=== PATIENT | female | born 1970 | race American Indian/Alaskan Native ===

== ENCOUNTER 2016-08-22 09:33 | Outpatient (CLI) | payer MEDICAID, OTHER ==
[2016-08-22] MEDS ORDERED: PROVENTIL IH ONE (09:49)
== END 2016-08-22 09:34 | disposition home or self-care (01) ==
LOC: PF 09:33
PROVIDERS: ATTEND Internal Medicine
DX: J44.9 Chronic obstructive pulmonary disease, unspecified (principal); G47.30 Sleep apnea, unspecified; F32.9 Major depressive disorder, single episode, unspecified; I89.0 Lymphedema, not elsewhere classified; M54.40 Lumbago with sciatica, unspecified side; M79.604 Pain in right leg; M79.605 Pain in left leg; M25.551 Pain in right hip; M25.552 Pain in left hip; M25.519 Pain in unspecified shoulder; M79.643 Pain in unspecified hand
CPT/HCPCS: 94060; 94640

== ENCOUNTER 2018-12-05 01:43 | Emergency (ER) | payer SELFPAY ==
[2018-12-05] MEDS ORDERED: TORADOL IM ONE (03:44)
[2018-12-05] MEDS ORDERED: DECADRON IM ONE (03:45)
--- NOTE | 2018-12-05 04:12 | Emergency Department Report ---
ED Lower Extremity HPI - General Chief Complaint: Extremity Problem,Nontraumatic Stated Complaint: RT SIDE LEG AND HIP PAIN Time Seen by Provider: 12/05/18 03:43 Source: EMS Mode of arrival: Wheelchair Limitations: No Limitations - History of Present Illness Initial Comments: Patient is a 48-year-old -[place] female with history of chronic low b ack pain who presents for low back pain radiating down the right thigh x 1 week, Patient denies fall injury or trauma. This is usual location duration and intensity of lower back pain of the past. Patient states she is taking gabapentin, Flexeril, and NSAIDs when necessary back pain as written by her PCP. Pt is pending pain management consult. Patient denies dysuria, frequency, or urgency. There is no hematuria, there is no numbness, no tingling, no paralysis, no loss ,or decrease in bowel or bladder function. Patient remains ambulatory to baseline per patient. There is no fever or chills, no n/v , no weakness MD Complaint: other (acute on chronic low back pain ) Onset/Timin -: week(s) Type of Injury: hyperextension Place: work Severity: moderate Severity scale (0 -10): 4 Improves With: nothing Worsens With: weight bearing, movement, palpation, other (bending twisting) Associated Symptoms: ambulatory. denies: snap/pop sensation, swelling, numbness, tingling - Related Data Home Medications Medication Instructions Recorded Confirmed Last Taken Furosemide [Lasix] 40 mg PO DAILY 08/03/14 08/03/14 Unknown Previous Rx's Medication Instructions Recorded Last Taken Type Amoxicillin/K Clav Tab [Augmentin 1 each PO Q12HR #14 tablet 08/06/14 Unknown Rx 500 mg] Clindamycin [Clindamycin CAP] 300 mg PO Q6HR #80 capsule 10/11/14 Unknown Rx Gabapentin [Neurontin] 600 mg PO Q8H #90 tablet 10/11/14 Unknown Rx HYDROcodone/APAP 5-325 [[place] 1 each PO Q6HR PRN #20 tablet 10/11/14 Unknown Rx 5/325] Ipratropium (Nf) [Atrovent HFA 2 puff IH Q6HR PRN #1 inha 10/11/14 Unknown Rx 17MCG/PUFF] Diclofenac Dr (Nf) 50 mg PO TID PRN #30 tab 12/05/18 Unknown Rx Menthol/Camphor [[place] 1 applicatio TP QID PRN #1 tube 12/05/18 Unknown Rx Ointment] predniSONE [Deltasone] 40 mg PO QDAY 5 Days #10 tab 12/05/18 Unknown Rx Allergies Allergy/AdvReac Type Severity Reaction Status Date / Time amoxicillin trihydrate AdvReac Itching Verified 05/29/15 15:43 [From Augmentin] naproxen AdvReac Hives Verified 05/29/15 15:43 potassium clavulanate AdvReac Itching Verified 05/29/15 15:43 [From Augmentin] ED Review of Systems ROS: Stated complaint: RT SIDE LEG AND HIP PAIN Other details as noted in HPI Constitutional: denies: chills, fever Eyes: denies: eye pain, eye discharge, vision change ENT: denies: ear pain, throat pain Respiratory: denies: cough, shortness of breath, wheezing Cardiovascular: denies: chest pain, palpitations Endocrine: no symptoms reported Gastrointestinal: denies: abdominal pain, nausea, vomiting, diarrhea Genitourinary: denies: urgency, dysuria, frequency, hematuria, discharge Musculoskeletal: back pain, arthralgia, myalgia. denies: joint swelling Skin: denies: rash, lesions Neurological: denies: headache, weakness, paresthesias Psychiatric: denies: anxiety, depression Hematological/Lymphatic: denies: easy bleeding, easy bruising ED Past Medical Hx - Past Medical History Hx Hypertension: Yes Hx CVA: No Hx Congestive Heart Failure: No Hx Diabetes: No Hx Arthritis: Yes (self reported) Hx Seizures: No Hx Asthma: No Hx COPD: Yes Additional medical history: LYMPHEDEMA CELLULITIS NEUROPATHY - Surgical History Past Surgical History?: Yes Hx Breast Surgery: Yes (LUMP LEFT BREAST REMOVED) - Social History Smoking Status: Never Smoker Substance Use Type: None - Medications Home Medications: Home Medications Medication Instructions Recorded Confirmed Last Taken Type Furosemide [Lasix] 40 mg PO DAILY 08/03/14 08/03/14 Unknown History Amoxicillin/K Clav Tab [Augmentin 1 each PO Q12HR #14 tablet 08/06/14 Unknown Rx 500 mg] Clindamycin [Clindamycin CAP] 300 mg PO Q6HR #80 capsule 10/11/14 Unknown Rx Gabapentin [Neurontin] 600 mg PO Q8H #90 tablet 10/11/14 Unknown Rx HYDROcodone/APAP 5-325 [[place] 1 each PO Q6HR PRN #20 tablet 10/11/14 Unknown Rx 5/325] Ipratropium (Nf) [Atrovent HFA 2 puff IH Q6HR PRN #1 inha 10/11/14 Unknown Rx 17MCG/PUFF] Diclofenac Dr (Nf) 50 mg PO TID PRN #30 tab 12/05/18 Unknown Rx Menthol/Camphor [[place] 1 applicatio TP QID PRN #1 tube 12/05/18 Unknown Rx Ointment] predniSONE [Deltasone] 40 mg PO QDAY 5 Days #10 tab 12/05/18 Unknown Rx ED Physical Exam - General Limitations: No Limitations General appearance: alert, in no apparent distress - Head Head exam: Present: atraumatic, normocephalic - Eye Eye exam: Present: normal appearance, PERRL, EOMI Pupils: Present: normal accommodation - ENT ENT exam: Present: mucous membranes moist - Neck Neck exam: Present: normal inspection, full ROM. Absent: tenderness (no posterior vertebral point tenderness no deformity no crepitus . ), meningismus, lymphadenopathy, thyromegaly - Respiratory Respiratory exam: Present: normal lung sounds bilaterally. Absent: respiratory distress, wheezes, stridor, chest wall tenderness - Cardiovascular Cardiovascular Exam: Present: regular rate, normal rhythm, normal heart sounds. Absent: systolic murmur, diastolic murmur, rubs, gallop - GI/Abdominal GI/Abdominal exam: Present: soft, normal bowel sounds. Absent: distended, guarding, rebound, rigid, bruit, hernia - Rectal Rectal exam: Present: deferred - Extremities Exam Extremities exam: Present: normal inspection, full ROM, normal capillary refill. Absent: tenderness, pedal edema, joint swelling, calf tenderness - Expanded Lower Extremity Exam Right Hip exam: Present: full ROM. Absent: tenderness, swelling, abrasion, laceration, ecchymosis Upper Leg exam: Present: normal inspection, full ROM Knee exam: Present: normal inspection, full ROM, tenderness Lower Leg exam: Present: normal inspection, full ROM. Absent: tenderness, swelling, abrasion, laceration, deformity, crepidus, erythema, palpable cord, Gregoria's sign Ankle exam: Present: normal inspection Foot/Toe exam: Present: normal inspection, full ROM Neuro vascular tendon exam: Absent: pulse deficit, motor deficit, sensory deficit, tendon deficit Gait: Positive: observed and normal - Back Exam Back exam: Present: normal inspection, full ROM, tenderness (no crepitus no swelling no stepoff ), muscle spasm. Absent: CVA tenderness (R), CVA tenderness (L), paraspinal tenderness, vertebral tenderness, rash noted - Expanded Back Exam Expanded Back exam: Absent: saddle anesthesia Back exam: Positive Straight Leg Raise: Right, Negative Straight Leg Raising: Left - Neurological Exam Neurological exam: Present: alert, oriented X3, CN II-XII intact, normal gait, reflexes normal. Absent: motor sensory deficit - Expanded Neurological Exam Expanded Patient oriented to: Present: person, place, time Speech: Present: fluid speech Cranial nerves: EOM's Intact: Normal, Gag Reflex: Normal, Tongue Deviation: Normal, Nystagmus: Normal, Facial Sensation: Normal Upper motor neuron: Gordy Neglect: Normal, Pronator Drift: Normal Motor strength exam: RUE: 5, LUE: 5, RLE: 5, LLE: 5 DTR: ankle (R): 2+, ankle (L): 2+ Best Eye Response ([place]): (4) open spontaneously Best Motor Response ([place]): (6) obeys commands Best Verbal Response ([place]): (5) oriented [place] Total: 15 - Psychiatric Psychiatric exam: Present: normal affect, normal mood - Skin Skin exam: Present: warm, dry, intact, normal color. Absent: rash ED Lower Extremity MDM - Medical Decision Making All pain is Chronic , there is no new pain source, or injury. pain is improved to 2/10 at this time. , plan: Diclofenac, prednisone, continue flexeril, continue Gabapentin, Follow up with Ortho as scheduled, follow up with pain management as scheduled , vital signs at this time: BP: 138/74, R: 16, P: 84, T: 98.4 Critical care attestation.: If time is entered above; I have spent that time in minutes in the direct care of this critically ill patient, excluding procedure time. ED Disposition Clinical Impression: Chronic low back pain with right-sided sciatica Qualifiers: Back pain laterality: right Qualified Code(s): M54.41 - Lumbago with sciatica, right side Low back strain Qualifiers: Encounter type: initial encounter Qualified Code(s): S39.012A - Strain of muscle, fascia and tendon of lower back, initial encounter Disposition: TO HOME OR SELFCARE Is pt being admited?: No Does the pt Need Aspirin: No Condition: Stable Instructions: Lumbar Radiculopathy (ED), Arthralgia (ED) Prescriptions: predniSONE [Deltasone] 40 mg PO QDAY 5 Days #[address] (Nf) 50 mg PO TID PRN #30 tab PRN Reason: pain Menthol/Camphor [[place] Ointment] 1 applicatio TP QID PRN #1 tube PRN Reason: pain Referrals: JOSE J JEAN BAPTISTE MD [Referring] - 3-5 Days Forms: Work/School Release Form(ED) Time of Disposition: 04:37
[2018-12-05 07:21] VITALS: BP 151/79
== END 2018-12-05 05:35 | disposition home or self-care (01) ==
LOC: ED 01:43
DX: S39.012A Strain of muscle, fascia and tendon of lower back, initial encounter (principal); M54.41 Lumbago with sciatica, right side; M19.90 Unspecified osteoarthritis, unspecified site; J44.9 Chronic obstructive pulmonary disease, unspecified; Z88.1 Allergy status to other antibiotic agents; Z88.8 Allergy status to other drugs, medicaments and biological substances; X58.XXXA Exposure to other specified factors, initial encounter; Y93.89 Activity, other specified; Y92.89 Other specified places as the place of occurrence of the external cause; Y99.8 Other external cause status
CPT/HCPCS: 96372; 99283; J1100; J1885

== ENCOUNTER 2019-04-30 23:35 | Observation (INO) | payer OTHER ==
[2019-05-01 01:00] LABS: Hematocrit 29.3 % (30.3-42.9); Hemoglobin 8.9 gm/dl (10.1-14.3); Mean Corpuscular HGB Conc 31 % (30-34); Platelet Count 264 K/mm3 (140-440); Red Blood Count 4.86 M/mm3 (3.65-5.03)
[2019-05-01 01:15] LABS: Albumin 4.1 g/dL (3.9-5); BUN/Creatinine Ratio 10; Blood Urea Nitrogen 7 mg/dL (7-17); Calcium 9.4 mg/dL (8.4-10.2); Hemolysis Index 0
[2019-05-01 01:17] LABS: Mean Corpuscular Volume 60 fl (79-97); Red Cell Distribution Width 20.3 % (13.2-15.2)
[2019-05-01 01:29] LABS: Alanine Aminotransferase < 5 units/L (7-56)
[2019-05-01 04:32] LABS: Basophils % (Manual) 0 % (0.0-1.8); Total Cells Counted 100
[2019-05-01 04:34] LABS: Burr Cells Rare; Hypochromasia 1+; Schistocytes Rare; Target Cells 1+
[2019-05-01 04:35] LABS: Ovalocytes Few
[2019-05-01 04:36] LABS: Platelet Estimate Consistent w Auto
[2019-05-01] MEDS ORDERED: traMADol 50 MG TAB PO ONE (06:12)
[2019-05-01] MEDS ORDERED: traMADol 50 MG TAB ONE (06:13)
[2019-05-01] MEDS ORDERED: ONDANSETRON 4 MG/2 ML INJ IV ONE (07:18)
[2019-05-01] MEDS ORDERED: MORPHINE 4 MG/1 ML INJ IV ONE (07:18)
[2019-05-01] MEDS ORDERED: SODIUM CHLORIDE 0.9% 1000 ML 1,000 ML IV ONE (07:18)
[2019-05-01 07:32] LABS: Bilirubin,Urine NEG (Negative); Blood,Urine NEG (Negative); Color,Urine Yellow (Yellow); Mucus,Urine FEW /HPF; Protein,Urine <15 mg/dL mg/dL (Negative); Urobilinogen,Urine < 2.0 mg/dL (<2.0); WBC,Urine < 1.0 /HPF (0.0-6.0)
[2019-05-01 07:59] LABS: HCG Qualitative,Urine Negative (Negative)
--- NOTE | 2019-05-01 08:09 | Emergency Department Report ---
ED Abdominal Pain HPI - General Chief Complaint: Abdominal Pain Stated Complaint: ABD PAIN Time Seen by Provider: 05/01/19 07:02 Source: patient Mode of arrival: Ambulatory Limitations: No Limitations - History of Present Illness Initial Comments: This is a 48-year-old female nontoxic, well nourished in appearance, no acute signs of distress presents to the ED with c/o of nausea and vomiting and abdominal pain 1 day. Patient describes vomiting as food content and yellow gastric acid. Patient describes abdominal pain as cramping and aching with l evel of 8/10 in the upper abdominal area. Patient denies chest pain, short of breath, fever, hemoptysis, blood in stool, chills, headache, stiff neck, numbness or tingling. Patient denies any diarrhea or constipation. Denies any blood in stool. Patient denies any recent travels. Patient stated allergies to penicillin and naproxen. MD Complaint: abdominal pain -: days(s) Location: diffuse Radiation: none Migration to: no migration Severity: mild Severity scale (0 -10): 8 Quality: cramping, aching Consistency: constant Improves With: nothing Worsens With: nothing Associated Symptoms: nausea, vomiting. denies: diarrhea, fever, chills, constipation, dysuria, hematemesis, hematochezia, melena, hematuria, anorexia, syncope - Related Data Home Medications Medication Instructions Recorded Confirmed Last Taken Furosemide [Lasix] 40 mg PO DAILY 08/03/14 08/03/14 Unknown Previous Rx's Medication Instructions Recorded Last Taken Type Amoxicillin/K Clav Tab [Augmentin 1 each PO Q12HR #14 tablet 08/06/14 Unknown Rx 500 mg] Clindamycin [Clindamycin CAP] 300 mg PO Q6HR #80 capsule 10/11/14 Unknown Rx Gabapentin [Neurontin] 600 mg PO Q8H #90 tablet 10/11/14 Unknown Rx HYDROcodone/APAP 5-325 [[place] 1 each PO Q6HR PRN #20 tablet 10/11/14 Unknown Rx 5/325] Ipratropium (Nf) [Atrovent HFA 2 puff IH Q6HR PRN #1 inha 10/11/14 Unknown Rx 17MCG/PUFF] Diclofenac Dr (Nf) 50 mg PO TID PRN #30 tab 12/05/18 Unknown Rx Menthol/Camphor [[place] 1 applicatio TP QID PRN #1 tube 12/05/18 Unknown Rx Ointment] predniSONE [Deltasone] 40 mg PO QDAY 5 Days #10 tab 12/05/18 Unknown Rx Allergies Allergy/AdvReac Type Severity Reaction Status Date / Time amoxicillin trihydrate AdvReac Itching Verified 05/29/15 15:43 [From Augmentin] naproxen AdvReac Hives Verified 05/29/15 15:43 potassium clavulanate AdvReac Itching Verified 05/29/15 15:43 [From Augmentin] ED Review of Systems ROS: Stated complaint: ABD PAIN Other details as noted in HPI Constitutional: denies: chills, fever Eyes: denies: eye pain, eye discharge, vision change ENT: denies: ear pain, throat pain Respiratory: denies: cough, shortness of breath, wheezing Cardiovascular: denies: chest pain, palpitations Endocrine: no symptoms reported Gastrointestinal: abdominal pain, nausea, vomiting. denies: diarrhea, constipation Genitourinary: denies: urgency, dysuria, discharge Musculoskeletal: denies: back pain, joint swelling, arthralgia Skin: denies: rash, lesions Neurological: denies: headache, weakness, paresthesias Psychiatric: denies: anxiety, depression Hematological/Lymphatic: denies: easy bleeding, easy bruising ED Past Medical Hx - Past Medical History Hx Hypertension: Yes Hx CVA: No Hx Congestive Heart Failure: No Hx Diabetes: No Hx Arthritis: Yes (self reported) Hx Seizures: No Hx Asthma: No Hx COPD: Yes Additional medical history: LYMPHEDEMA CELLULITIS NEUROPATHY - Surgical History Hx Breast Surgery: Yes (LUMP LEFT BREAST REMOVED) - Social History Smoking Status: Never Smoker Substance Use Type: None - Medications Home Medications: Home Medications Medication Instructions Recorded Confirmed Last Taken Type Furosemide [Lasix] 40 mg PO DAILY 08/03/14 08/03/14 Unknown History Amoxicillin/K Clav Tab [Augmentin 1 each PO Q12HR #14 tablet 08/06/14 Unknown Rx 500 mg] Clindamycin [Clindamycin CAP] 300 mg PO Q6HR #80 capsule 10/11/14 Unknown Rx Gabapentin [Neurontin] 600 mg PO Q8H #90 tablet 10/11/14 Unknown Rx HYDROcodone/APAP 5-325 [[place] 1 each PO Q6HR PRN #20 tablet 10/11/14 Unknown Rx 5/325] Ipratropium (Nf) [Atrovent HFA 2 puff IH Q6HR PRN #1 inha 10/11/14 Unknown Rx 17MCG/PUFF] Diclofenac Dr (Nf) 50 mg PO TID PRN #30 tab 12/05/18 Unknown Rx Menthol/Camphor [[place] 1 applicatio TP QID PRN #1 tube 12/05/18 Unknown Rx Ointment] predniSONE [Deltasone] 40 mg PO QDAY 5 Days #10 tab 12/05/18 Unknown Rx ED Physical Exam - General Limitations: No Limitations General appearance: alert, in no apparent distress - Head Head exam: Present: atraumatic, normocephalic - Eye Eye exam: Present: normal appearance - ENT ENT exam: Present: normal exam, normal orophraynx - Neck Neck exam: Present: normal inspection, full ROM. Absent: tenderness, meningismus, lymphadenopathy - Respiratory Respiratory exam: Present: normal lung sounds bilaterally. Absent: respiratory distress, wheezes, rales, rhonchi, stridor, chest wall tenderness, accessory muscle use, decreased breath sounds, prolonged expiratory - Cardiovascular Cardiovascular Exam: Present: regular rate, normal rhythm, normal heart sounds. Absent: bradycardia, tachycardia, irregular rhythm, systolic murmur, diastolic murmur, rubs, gallop - GI/Abdominal GI/Abdominal exam: Present: soft, tenderness (bilateral upper abdominal area), normal bowel sounds. Absent: distended, guarding, rebound, rigid, diminished bowel sounds - Rectal Rectal exam: Present: normal inspection, normal rectal tone, other (Mechanical Maintenance Supervisor Mirna present during exam). Absent: decreased rectal tone, heme (+) stool, black stool, bloody stool, fecal impaction, hemorrhoids, mass, tenderness - Extremities Exam Extremities exam: Present: normal inspection, full ROM - Back Exam Back exam: Present: normal inspection, full ROM. Absent: tenderness, CVA tenderness (R), CVA tenderness (L), muscle spasm, paraspinal tenderness, vertebral tenderness, rash noted - Neurological Exam Neurological exam: Present: alert, oriented X3, normal gait - Psychiatric Psychiatric exam: Present: normal affect, normal mood - Skin Skin exam: Present: warm, dry, intact, normal color. Absent: rash ED Course Vital Signs 04/30/19 05/01/19 23:59 09:30 Temperature 99.5 F 98.2 F Pulse Rate 82 76 Respiratory 20 18 Rate Blood Pressure 140/76 Blood Pressure 107/50 [Right] O2 Sat by Pulse 100 Oximetry - Reevaluation(s) Reevaluation #1: 05/01/19 08:09 Patient is speaking in full sentences with no signs of distress noted. - Consultations Consultation #1: 05/01/19 10:27 Patient has been consulted with Elizabeth Blackmon about patient history, physical exam, and labs/CT results and examined patient and agrees to ED plan of care with admission and consult with surgery and GI doctor. ED Medical Decision Making - Lab Data Result diagrams: 05/01/19 00:10 05/01/19 00:10 - Medical Decision Making This is a 48-year-old female that presents with abdominal pain, nausea vomiting, colitis, anemia. Patient is stable and was examined by me and Dr. Khalil. Labs obtained. UA obtained. CT of abdomen obtained and dictated by the radiologist. Patient is notified of the report with no questions noted by the patient. Patient was consulted with GI, surgery and admitted with hospitalist. Patient received resuscitation in the ER. Patient placed on n.p.o. At time of admission, the patient does not seem toxic or ill in appearance. No acute signs of distress noted. Patient agrees to admission treatment plan of care. No further questions noted by the patient. Critical care attestation.: If time is entered above; I have spent that time in minutes in the direct care of this critically ill patient, excluding procedure time. ED Disposition Clinical Impression: Colitis Abdominal pain Qualifiers: Abdominal location: generalized Qualified Code(s): R10.84 - Generalized abdominal pain Nausea & vomiting Qualifiers: Vomiting type: unspecified Vomiting Intractability: non-intractable Qualified Code(s): R11.2 - Nausea with vomiting, unspecified Anemia Qualifiers: Anemia type: unspecified type Qualified Code(s): D64.9 - Anemia, unspecified Disposition: DC-09 OP ADMIT IP TO THIS HOSP Is pt being admited?: Yes Condition: Stable Referrals: PRIMARY CARE,MD [Primary Care Provider] - 3-5 Days
--- NOTE | 2019-05-01 09:43 | Cat Scan Report ---
CT ABDOMEN AND PELVIS WITH CONTRAST HISTORY: Abdominal pain. COMPARISON: None TECHNIQUE: Routine abdominal and pelvic CT exam performed following intravenous contrast administrat ion. 100 cc of Omnipaque 300 was injected intravenously without incident. Consent was obtained prior to the administration of contrast. All CT scans at this location are performed using CT dose reduction for ALARA by means of automated e xposure control. FINDINGS: CT ABDOMEN: Lung Bases: Clear. Liver: Normal liver size, contour and density. No liver mass. Biliary: Cholelithiasis with at least 2 calculi in the largest measuring 5 mm. The gallbladder is nor vicente distended with a normal wall thickness and no pericholecystic fluid. Bile ducts are normal. Spleen: No significant abnormality. Unenlarged. Pancreas: No significant abnormality. Adrenals: No significant abnormality. Kidneys: No significant abnormality. The renal collecting systems and ureters are nondilated. Lymphatics: No lymphadenopathy. Vasculature: No significant abnormality. Bowel/Peritoneum: The cecum and appendix are distended with fluid but the rest of the colon is normal . The appendix measures 12 mm in diameter. No periappendiceal inflammatory changes and no periappendi ceal abscess. The terminal ileum and the rest of the small bowel are normal. No free air. No free flu id. CT PELVIC: : Normal uterus and ovaries. A 2 cm dominant follicle of the right ovary. No adnexal mass or free f luid. Lymphatics: No lymphadenopathy. Osseous Structures: No suspicious bone lesion. Additional Findings: None IMPRESSION: 1. A fluid-filled appendix and cecum are of uncertain significance given that there are no periappend iceal or pericecal inflammatory changes. Consider acute appendicitis as a possibility if there are cl inical signs or laboratory values which suggest appendicitis. 2. No other significant finding. Signer Name: Igor Mcgrath MD Signed: 05/01/2019 9:39 AM Workstation Name: [id number]
[2019-05-01] MEDS ORDERED: PIPERACIL/TAZOBACTA 4.5/NS 100 4.5 GM/100 ML VIAL IV ONE (10:02)
[2019-05-01] MEDS ORDERED: metroNIDAZOLE/NS 500 MG/100 ML 500 MG/100 ML BAG IV ONE (10:16)
[2019-05-01] MEDS ORDERED: ALBUTEROL 2.5 MG/3 ML NEBU IH PRN (12:50)
[2019-05-01] MEDS ORDERED: ACETAMINOPHEN 325 MG TAB PO PRN (12:50)
[2019-05-01] MEDS ORDERED: ONDANSETRON 4 MG/2 ML INJ IV PRN (12:50)
--- NOTE | 2019-05-01 13:04 | History and Physical Report ---
History of Present Illness Chief complaint: I have abdominal pain History of present illness: 48 YO Female with HTN, OA, Lymphedema, COPD, Obesity Hypoventilation Syndrome, Neuropathy presents to ED for evaluation. Patient states that she has experienced abdominal pain over the past 1 day with persistent symptoms during the same timeframe. Patient acknowledges onset of symptoms around 1900 hrs. on the day prior to admission. Patient states symptoms began after eating a hot dog. Patient knowledges nausea, multiple episodes of vomiting, abdominal pain, abdominal cramping. Patient reports that pain in her abdomen is 8/10, constant, without exacerbating or alleviating factors. EMS notified and upon arrival the patient was found to be in distress and subsequently transported to [facility] for further evaluation and care. Patient seen in ED and evaluated in the emergency department. Lab and imaging studies reviewed. CT scan of the abdomen and pelvis was conducted. Patient found to have clinical symptoms consistent with gastroenteritis. Patient placed in observation status and admitted to medical floor. Patient denies fever, chills, chest pain, short of breath, palpitations, hemoptysis, blood in stool, chills, headache, productive cough, stiff neck, numbness or tingling. Surgery consult placed in the emergency department. GI consult placed in the emergency department. No prior admission for review. All medication listed at time of admission has been reconciled. Past History Past Medical History: arthritis, COPD, hypertension, other (see HPI) Past Surgical History: Other (Left Breast/Lumpectomy) Social history: single Family history: hypertension Medications and Allergies Allergies Allergy/AdvReac Type Severity Reaction Status Date / Time amoxicillin trihydrate AdvReac Itching Verified 05/29/15 15:43 [From Augmentin] naproxen AdvReac Hives Verified 05/29/15 15:43 potassium clavulanate AdvReac Itching Verified 05/29/15 15:43 [From Augmentin] Home Medications Medication Instructions Recorded Confirmed Last Taken Type Furosemide [Lasix] 40 mg PO DAILY 08/03/14 08/03/14 Unknown History Amoxicillin/K Clav Tab [Augmentin 1 each PO Q12HR #14 tablet 08/06/14 Unknown Rx 500 mg] Clindamycin [Clindamycin CAP] 300 mg PO Q6HR #80 capsule 10/11/14 Unknown Rx Gabapentin [Neurontin] 600 mg PO Q8H #90 tablet 10/11/14 Unknown Rx HYDROcodone/APAP 5-325 [[place] 1 each PO Q6HR PRN #20 tablet 10/11/14 Unknown Rx 5/325] Ipratropium (Nf) [Atrovent HFA 2 puff IH Q6HR PRN #1 inha 10/11/14 Unknown Rx 17MCG/PUFF] Diclofenac Dr (Nf) 50 mg PO TID PRN #30 tab 12/05/18 Unknown Rx Menthol/Camphor [[place] 1 applicatio TP QID PRN #1 tube 12/05/18 Unknown Rx Ointment] predniSONE [Deltasone] 40 mg PO QDAY 5 Days #10 tab 12/05/18 Unknown Rx Active Meds: Active Medications Acetaminophen (Tylenol) 650 mg PO Q4H PRN PRN Reason: Pain MILD(1-3)/Fever >100.5/GOMEZ Albuterol (Proventil) 2.5 mg IH Q4HRT PRN PRN Reason: Shortness Of Breath Ondansetron HCl (Zofran) 4 mg IV Q8H PRN PRN Reason: Nausea And Vomiting Sodium Chloride (Sodium Chloride Flush Syringe 10 Ml) 10 ml IV BID NADIA Sodium Chloride (Sodium Chloride Flush Syringe 10 Ml) 10 ml IV PRN PRN PRN Reason: LINE FLUSH Review of Systems Constitutional: no weight loss, no weight gain, no fever, no chills Ears, nose, mouth and throat: no ear pain, no ear discharge, no tinnitis, no decreased hearing, no nose pain Breasts: no change in shape, no swelling, no mass Cardiovascular: no chest pain, no orthopnea, no palpitations, no rapid/irregular heart beat, no edema Respiratory: no cough, no cough with sputum, no excessive sputum Gastrointestinal: abdominal pain, nausea, vomiting, no diarrhea, no change in bowel habits, no hematemesis, no BRBPR, no melena Genitourinary Female: no pelvic pain, no flank pain, no menorrhagia, no urinary frequency, no urgency Rectal: no pain, no incontinence, no bleeding Musculoskeletal: no neck stiffness, no neck pain, no shooting arm pain, no arm numbness/tingling, no low back pain Integumentary: no rash, no pruritis, no redness, no sores, no wounds Neurological: no paralysis, no weakness, no parathesias, no numbness, no tingling Psychiatric: no anxiety, no memory loss, no change in sleep habits, no sleep disturbances, no insomnia, no hypersomnia Endocrine: no cold intolerance, no heat intolerance, no polyphagia, no excessive thirst, no polydipsia, no polyuria, no nocturia Hematologic/Lymphatic: no easy bruising, no easy bleeding, no lymphadenopathy, no lymphedema Allergic/Immunologic: no urticaria, no persistent infections, no anaphylaxis, no angioedema Exam - Constitutional Vitals: Temp Pulse Resp BP Pulse Ox 98.2 F 76 18 107/50 100 05/01/19 09:30 05/01/19 09:30 05/01/19 09:30 05/01/19 09:30 04/30/19 23:59 General appearance: Present: mild distress, obese - EENT Eyes: Present: PERRL ENT: hearing intact, clear oral mucosa - Neck Neck: Present: supple, normal ROM - Respiratory Respiratory effort: normal Respiratory: bilateral: CTA - Cardiovascular Heart Sounds: Present: S1 & S2. Absent: rub, click - Extremities Extremities: pulses symmetrical, No edema Peripheral Pulses: within normal limits - Abdominal General gastrointestinal: Present: soft, tender, non-distended, normal bowel sounds Localized gastrointestinal: tender: diffuse Female genitourinary: Present: normal - Integumentary Integumentary: Present: clear, warm, dry - Musculoskeletal Musculoskeletal: gait normal, strength equal bilaterally - Psychiatric Psychiatric: appropriate mood/affect, intact judgment & insight - Neurologic Neurologic: CNII-XII intact, moves all extremities Results - Labs CBC & Chem 7: 05/01/19 00:10 05/01/19 00:10 Labs: Abnormal lab results 05/01/19 05/01/19 05/01/19 Range/Units 00:10 00:10 07:24 Hgb 8.9 L (10.1-14.3) gm/dl Hct 29.3 L (30.3-42.9) % MCV 60 L (79-97) fl MCH 18 L (28-32) pg RDW 20.3 H (13.2-15.2) % Seg Neuts % (Manual) 73.0 H (40.0-70.0) % ALT < 5 L (7-56) units/L Urine pH 8.0 H (5.0-7.0) Assessment and Plan - Patient Problems (1) Gastroenteritis Current Visit: Yes Status: Acute Plan to address problem: CT scan abdomen and pelvis, surgery team consulted, GI team consulted, serial physical exam, bowel rest, supportive care. CBC, CMP, repeat CBC and CMP in a.m. (2) Obesity hypoventilation syndrome Current Visit: Yes Status: Acute Plan to address problem: Supplemental oxygen, nebulized therapy, pulse oximetry, outpatient sleep study, balanced diet increase physical activity at discharge, outpatient bariatric surgery follow-up. (3) HTN (hypertension) Current Visit: Yes Status: Acute Qualifiers: Hypertension type: essential hypertension Qualified Code(s): I10 - Essential (primary) hypertension Plan to address problem: Monitor blood pressure every shift, continue medical management. (4) Arthritis Current Visit: Yes Status: Acute Plan to address problem: supportive care, pain control, NSAID therapy as tolerated, (5) DVT prophylaxis Current Visit: No Status: Acute Plan to address problem: SCD to BLE while in bed, prophylactic heparin
[2019-05-02] MEDS ORDERED: METHYLNALTREXONE BROMIDE 150 MG PO PRN (00:01)
[2019-05-02] MEDS: ZOLPIDEM 5 MG TAB PO PRN ×2 (00:33→22:33)
[2019-05-02] MEDS: HYDROcodone/ACETAMINOPHEN 7.5-325MG TAB PO PRN ×3 (00:33→20:05)
[2019-05-02 05:32] LABS: Hemoglobin 8.1 gm/dl (10.1-14.3); Mean Corpuscular HGB Conc 31 % (30-34); Platelet Count 224 K/mm3 (140-440); Red Blood Count 4.35 M/mm3 (3.65-5.03)
[2019-05-02 05:46] LABS: BUN/Creatinine Ratio 8; Blood Urea Nitrogen 5 mg/dL (7-17); Calcium 8.3 mg/dL (8.4-10.2); Hemolysis Index 0
[2019-05-02 05:52] LABS: Mean Corpuscular Volume 60 fl (79-97); Red Cell Distribution Width 20.3 % (13.2-15.2)
[2019-05-02 06:57] LABS: Anisocytosis 1+; Basophils % (Manual) 0 % (0.0-1.8); Hypochromasia 1+; Platelet Estimate Consistent w Auto; Total Cells Counted 100
[2019-05-02] MEDS: PREGABALIN 75 MG CAP PO SCH ×2 (10:06→21:04)
[2019-05-02] MEDS: tiZANidine TAB 4 MG TAB PO SCH ×2 (10:06→21:04)
--- NOTE | 2019-05-02 11:49 | Progress Note ---
Assessment and Plan Full consult dictated 48 y/o obese female admitted with non specific abd pain after eating hot dog. now feels much better. hungry. CT - enlarged appendix but no periappendeceal stranding. (Pt states pain was more epig) Abd obese, soft, non tender. wbc wnl x 2 doubt appendicitis biliary colic? attempt low fat cl liq diet will order GB US r/o stones History of Present Illness Chief complaint: I have abdominal pain History of present illness: 48 YO Female with HTN, OA, Lymphedema, COPD, Obesity Hypoventilation Syndrome, Neuropathy presents to ED for evaluation. Patient states that she has experienced abdominal pain over the past 1 day with persistent symptoms during the same timeframe. Patient acknowledges onset of symptoms around 1900 hrs. on the day prior to admission. Patient states symptoms began after eating a hot dog. Patient knowledges nausea, multiple episodes of vomiting, abdominal pain, abdominal cramping. Patient reports that pain in her abdomen is 8/10, constant, without exacerbating or alleviating factors. EMS notified and upon arrival the patient was found to be in distress and subsequently transported to [facility] for furt her evaluation and care. Patient seen in ED and evaluated in the emergency department. Lab and imaging studies reviewed. CT scan of the abdomen and pelvis was conducted. Patient found to have clinical symptoms consistent with gastroenteritis. Patient placed in observation status and admitted to medical floor. Patient denies fever, chills, chest pain, short of breath, palpitations, hemoptysis, blood in stool, chills, headache, productive cough, stiff neck, numbness or tingling. Surgery consult placed in the emergency department. GI consult placed in the emergency department. No prior admission for review. All medication listed at time of admission has been reconciled. Past History Past Medical History: arthritis, COPD, hypertension, other (see HPI) Past Surgical History: Other (Left Breast/Lumpectomy) Social history: single Family history: hypertension Objective Vital Signs - 12hr 05/02/19 05/02/19 05/02/19 04:01 09:00 09:22 Temperature 97.9 F Pulse Rate 66 65 Respiratory 18 20 Rate Respiratory Rate [Lower Back] Blood Pressure 126/65 138/74 O2 Sat by Pulse 100 100 100 Oximetry 05/02/19 10:00 Temperature Pulse Rate Respiratory Rate Respiratory 20 Rate [Lower Back] Blood Pressure O2 Sat by Pulse Oximetry - Labs 05/02/19 03:50 05/02/19 03:50 Diabetes panel 05/02/19 Range/Units 03:50 Sodium 136 L (137-145) mmol/L Potassium 3.6 (3.6-5.0) mmol/L Chloride 102.6 (98-107) mmol/L Carbon Dioxide 21 L (22-30) mmol/L BUN 5 L (7-17) mg/dL Creatinine 0.6 L (0.7-1.2) mg/dL Glucose 68 (65-100) mg/dL Calcium 8.3 L (8.4-10.2) mg/dL Calcium panel 05/02/19 Range/Units 03:50 Calcium 8.3 L (8.4-10.2) mg/dL Pituitary panel 05/02/19 Range/Units 03:50 Sodium 136 L (137-145) mmol/L Potassium 3.6 (3.6-5.0) mmol/L Chloride 102.6 (98-107) mmol/L Carbon Dioxide 21 L (22-30) mmol/L BUN 5 L (7-17) mg/dL Creatinine 0.6 L (0.7-1.2) mg/dL Glucose 68 (65-100) mg/dL Calcium 8.3 L (8.4-10.2) mg/dL Adrenal panel 05/02/19 Range/Units 03:50 Sodium 136 L (137-145) mmol/L Potassium 3.6 (3.6-5.0) mmol/L Chloride 102.6 (98-107) mmol/L Carbon Dioxide 21 L (22-30) mmol/L BUN 5 L (7-17) mg/dL Creatinine 0.6 L (0.7-1.2) mg/dL Glucose 68 (65-100) mg/dL Calcium 8.3 L (8.4-10.2) mg/dL
--- NOTE | 2019-05-02 12:21 | Consultation ---
REASON FOR CONSULTATION: Nonspecific abdominal pain, rule out appendicitis. HISTORY OF PRESENT ILLNESS: The patient is a morbidly obese 48-year-old female who was admitted to the Emergency Room with nonspecific abdominal pain accompanied by nausea and vomiting. The patient states she is better now and is hungry. PAST MEDICAL HISTORY: Pertinent for hypertension, lymphedema, COPD and obesity and neuropathy. For other history, please review the chart. PAST SURGICAL HISTORY: Pertinent for left breast lumpectomy in the past, which was benign as per patient. PHYSICAL EXAMINATION: GENERAL: At this time, the patient is awake, alert, cooperative, in no acute distress. VITAL SIGNS: Show her to be afebrile with a temperature of 97.9, blood pressure 138/74, pulse of 65, respirations of 20. ABDOMEN: Examination of the abdomen reveals it to be morbidly obese, but soft. There is no tenderness that can be elicited. The patient does tell me that when she did experience the pain, it was mostly in the epigastric area. She did have some episodes of nausea and vomiting at that time, but none since. LABORATORY WORK: At present includes the CBC, which shows a white count of 6.3 on admission and 5.8 currently. H and H is low at 8.1 and 26, on admission, it was 8.9 and 29. LFTs are essentially normal. Electrolytes are also normal. A CT scan of the abdomen had been performed, which was the main reason for my consultation. The CT revealed what was described as an enlarged appendix measuring approximately 12 mm, but no periappendiceal inflammatory changes are noted. I reviewed this by phone with the radiologist and again he confirmed there was no periappendiceal stranding and he doubted actually that there would be any appendicitis. Gallstones are described on the CT report, but again no pericholecystic fluid is noted and bile ducts are also within normal limits. IMPRESSION: 1. At this time is that of a morbidly obese female with nonspecific abdominal pain, was mostly described as epigastric and accompanied by nausea and vomiting after eating a hot dog. 2. Doubt appendicitis at this time. Possible biliary colic. We will order a gallbladder ultrasound to follow up on this for further delineation of the gallbladder and wall thickening, etc. Also noted the low hemoglobin and hematocrit. I would recommend gastrointestinal evaluation for further workup on this. The patient appears surgically stable at present. We will attempt a low fat clear liquid diet. We will repeat a CBC in the morning and await gallbladder ultrasound report. We will follow with you. Thank you very much for consultation. JOB# [id number] ARIK/ROMANA
--- NOTE | 2019-05-02 15:23 | Consultation ---
History of Present Illness - Reason for Consult Consult date: 05/02/19 Epigastric pain Requesting physician: CRISTIAN ALVA - History of Present Illness Ms. Hawkins is a 48-year-old woman who was in her usual state of good health until she ate a hot dog. Several hours later, she had an attack of sharp epigastric pain which resolved after a bowel movement. She then had another attack of pain and vomited. After her third attack, she called EMS and was brought to the emergency room. Here, she was noted to have a hemoglobin of 8.0. A CT scan was obtained which showed a distended appendix and some fluid in the cecum. Because of this, she was admitted. She has done well since then with no further problems. She just drank liquids and does note some bloating discomfort with this. Patient denies prior symptoms similar to this. She has no food intolerance. S he does have occasional heartburn. She denies fevers chills or sweats. Her bowel movements used to be regular on a twice daily basis but have been on a daily basis ever since she got on hydrocodone for back pain. She denies hematemesis hematochezia or melena. Of note, she is attempting to lose weight prior to undergoing back and knee surgery. Home medications were reviewed. Past History Past Medical History: anemia (Sickle trait), arthritis, COPD, hypertension, other (see HPI) Past Surgical History: Other (Left Breast/Lumpectomy) Social history: single Family history: hypertension Medications and Allergies Allergies Allergy/AdvReac Type Severity Reaction Status Date / Time amoxicillin trihydrate AdvReac Itching Verified 05/29/15 15:43 [From Augmentin] naproxen AdvReac Hives Verified 05/29/15 15:43 potassium clavulanate AdvReac Itching Verified 05/29/15 15:43 [From Augmentin] Home Medications Medication Instructions Recorded Confirmed Last Taken Type HYDROcodone/APAP 7.5-325 [[place] 1 each PO Q6HR PRN 05/01/19 05/01/19 04/30/19 History 7.5/325] Methylnaltrexone [place] [Relistor] 150 mg PO TID PRN 05/01/19 05/01/19 04/30/19 History Pregabalin [Lyrica] 75 mg PO BID 05/01/19 05/01/19 04/30/19 History Zolpidem [Ambien] 5 mg PO QHS PRN 05/01/19 05/01/19 04/30/19 History tiZANidine [Zanaflex 4mg TAB] 4 mg PO BID 05/01/19 05/01/19 04/30/19 History Active Meds: Active Medications Acetaminophen (Tylenol) 650 mg PO Q4H PRN PRN Reason: Pain MILD(1-3)/Fever >100.5/GOMEZ Acetaminophen/Hydrocodone Bitart ([place] 7.5/325) 1 each PO Q6HR PRN PRN Reason: Pain, Moderate (4-6) Last Admin: 05/02/19 10:05 Dose: 1 each Documented by: Albuterol (Proventil) 2.5 mg IH Q4HRT PRN PRN Reason: Shortness Of Breath Miscellaneous Medication (Methylnaltrexone [place] [Relistor]) 150 mg PO TID PRN PRN Reason: Constipation Ondansetron HCl (Zofran) 4 mg IV Q8H PRN PRN Reason: Nausea And Vomiting Pregabalin (Pregabalin) 75 mg PO BID [facility] Last Admin: 05/02/19 10:06 Dose: 75 mg Documented by: Sodium Chloride (Sodium Chloride Flush Syringe 10 Ml) 10 ml IV BID [facility] Last Admin: 05/02/19 10:07 Dose: 10 ml Documented by: Sodium Chloride (Sodium Chloride Flush Syringe 10 Ml) 10 ml IV PRN PRN PRN Reason: LINE FLUSH Tizanidine HCl (Zanaflex) 4 mg PO BID [facility] Last Admin: 05/02/19 10:06 Dose: 4 mg Documented by: Zolpidem Tartrate (Ambien) 5 mg PO QHS PRN PRN Reason: Sleep Last Admin: 05/02/19 00:33 Dose: 5 mg Documented by: Review of Systems All systems: negative (as noted in HPI) Exam - Constitutional Vitals: Temp Pulse Resp BP Pulse Ox 97.9 F 65 18 138/74 100 05/02/19 04:01 05/02/19 09:22 05/02/19 11:05 05/02/19 09:22 05/02/19 09:22 General appearance: Present: no acute distress - EENT Eyes: Present: PERRL, EOM intact ENT: hearing intact - Respiratory Respiratory effort: normal Respiratory: bilateral: CTA - Cardiovascular Rhythm: regular Heart Sounds: Present: S1 & S2 - Extremities Extremities: No edema - Abdominal General gastrointestinal: Present: soft, non-tender Results - Labs CBC & Chem 7: 05/02/19 03:50 05/02/19 03:50 Labs: Abnormal lab results 05/02/19 05/02/19 Range/Units 03:50 03:50 Hgb 8.1 L (10.1-14.3) gm/dl Hct 26.0 L (30.3-42.9) % MCV 60 L (79-97) fl MCH 19 L (28-32) pg RDW 20.3 H (13.2-15.2) % Lymphocytes % (Manual) 47.0 H (13.4-35.0) % Monocytes % (Manual) 8.0 H (0.0-7.3) % Sodium 136 L (137-145) mmol/L Carbon Dioxide 21 L (22-30) mmol/L BUN 5 L (7-17) mg/dL Creatinine 0.6 L (0.7-1.2) mg/dL Calcium 8.3 L (8.4-10.2) mg/dL - Imaging and Cardiology CT scan - abdomen: report reviewed Assessment and Plan 1. Epigastric pain -self-limited and resolved. May have been due to something with the hot dog ingestion, since patient denies prior similar symptoms. Gallbladder ultrasound is not unreasonable. Acid peptic disturbance is also a consideration, though less likely. -Empiric PPI -No further GI evaluation planned 2. Microcytic anemia -consistent with patient's known history of sickle cell trait. There is no indication of GI bleeding. Discussed need for screening colonoscopy with patient given her age. Otherwise, I would have her follow-up with her primary physician for further evaluation. Her hemoglobin was 9 in 2016, so this is not much of a change. We will sign off. Please call as needed.
--- NOTE | 2019-05-02 16:11 | Ultrasound Report ---
ULTRASOUND ABDOMEN, LIMITED (RIGHT UPPER QUADRANT) INDICATION: epig abd pain. N V. COMPARISON: CT abdomen one day prior FINDINGS: Pancreas: Largely obscured by overlying bowel gas. Liver: Normal. Gallbladder: There are couple subcentimeter gallstones. The gallbladder is otherwise unremarkable. Bile ducts: Normal. Common Bile Duct measures 5 mm. Free fluid: None. Additional Findings: None. IMPRESSION: 1. Minimal cholelithiasis. No sonographic evidence of acute cholecystitis. Signer Name: Tuan Hardwick MD Signed: 05/02/2019 4:06 PM Workstation Name: [id number]
--- NOTE | 2019-05-02 20:07 | Progress Note ---
Assessment and Plan Assessment and plan: 48 YO Female with HTN, OA, Lymphedema, COPD, Obesity Hypoventilation Syndrome, Neuropathy presents to ED for evaluation. Patient states that she has experienced abdominal pain over the past 1 day with persistent symptoms during the same timeframe. Patient acknowledges onset of symptoms around 1900 hrs. on the day prior to admission. Patient states symptoms began after eating a hot dog. Patient knowledges nausea, multiple episodes of vomiting, abdominal pain, abdominal cramping. Patient reports that pain in her abdomen is 8/10, constant, without exacerbating or alleviating factors. EMS notified and upon arrival the patient was found to be in distress and subsequently transported to [facility] for f urther evaluation and care. Patient seen in ED and evaluated in the emergency department. Lab and imaging studies reviewed. CT scan of the abdomen and pelvis was conducted. Patient found to have clinical symptoms consistent with gastroenteritis. Patient placed in observation status and admitted to medical floor. Patient denies fever, chills, chest pain, short of breath, palpitations, hemoptysis, blood in stool, chills, headache, productive cough, stiff neck, numbness or tingling. Surgery consult placed in the emergency department. GI consult placed in the emergency department. No prior admission for review. All medication listed at time of admission has been reconciled. CTAP- Concerning for appendicitis - Patient Problems (1) Gastroenteritis Current Visit: Yes Status: Acute Plan to address problem: Patient was evaluated by GI, with no further recommendation, thinks it may have been due to the hot dog ingestion. recommended PPI (2) Obesity hypoventilation syndrome Current Visit: Yes Status: Acute Plan to address problem: Supplemental oxygen, nebulized therapy, pulse oximetry, outpatient sleep study, balanced diet increase physical activity at discharge, outpatient bariatric surgery follow-up. (3) HTN (hypertension) Current Visit: Yes Status: Acute Qualifiers: Hypertension type: essential hypertension Qualified Code(s): I10 - Essential (primary) hypertension Plan to address problem: Monitor blood pressure every shift, continue medical management. (4) Arthritis Current Visit: Yes Status: Acute Plan to address problem: supportive care, pain control, NSAID therapy as tolerated, (5) Microcytic Anemia Consistent with sickle cell trait. STABLE (6) DVT prophylaxis Current Visit: No Status: Acute Plan to address problem: SCD to BLE while in bed, prophylactic heparin History Interval history: Patient seen and examined, No new complaints, states pain is improving Hospitalist Physical - Physical exam Narrative exam: VITAL SIGNS: Reviewed. GENERAL: The patient appears normally developed,obese Vital signs as documented. HEAD: No signs of head trauma. EYES: Pupils are equal. Extraocular motions intact. EARS: Hearing grossly intact. MOUTH: Oropharynx is normal. NECK: No adenopathy, no JVD. CHEST: Chest with clear breath sounds bilaterally. No wheezes, rales, or rhonchi. CARDIAC: Regular rate and rhythm. S1 and S2, without murmurs, gallops, or rubs. VASCULAR: No Edema. Peripheral pulses normal and equal in all extremities. ABDOMEN: Soft, non tender and non distended. No rebound or guarding, and no masses palpated. Bowel Sounds normal. MUSCULOSKELETAL: Good range of motion of all major joints. Extremities without clubbing, cyanosis or edema. NEUROLOGIC EXAM: Alert and oriented x 3 No focal sensory or strength deficits. Speech normal. Follows commands. PSYCHIATRIC: Mood normal. SKIN: detial exam as documented in skin assessment - Constitutional Vitals: Temp Pulse Resp BP Pulse Ox 97.9 F 66 18 172/64 100 05/02/19 19:27 05/02/19 19:27 05/02/19 19:27 05/02/19 19:27 05/02/19 19:27 General appearance: Present: no acute distress Results - Labs CBC & Chem 7: 05/02/19 03:50 05/02/19 03:50 Labs: Laboratory Last Values WBC 5.8 K/mm3 (4.5-11.0) 05/02/19 03:50 RBC 4.35 M/mm3 (3.65-5.03) 05/02/19 03:50 Hgb 8.1 gm/dl (10.1-14.3) L 05/02/19 03:50 Hct 26.0 % (30.3-42.9) L 05/02/19 03:50 MCV 60 fl (79-97) L 05/02/19 03:50 MCH 19 pg (28-32) L 05/02/19 03:50 MCHC 31 % (30-34) 05/02/19 03:50 RDW 20.3 % (13.2-15.2) H 05/02/19 03:50 Plt Count 224 K/mm3 (140-440) 05/02/19 03:50 Lymph % (Auto) Tray Line Worker 05/02/19 03:50 Add Manual Diff Complete 05/02/19 03:50 Total Counted 100 05/02/19 03:50 Seg Neutrophils % Tray Line Worker 05/02/19 03:50 Seg Neuts % (Manual) 44.0 % (40.0-70.0) 05/02/19 03:50 Band Neutrophils % 0 % 05/02/19 03:50 Lymphocytes % (Manual) 47.0 % (13.4-35.0) H 05/02/19 03:50 Reactive Lymphs % (Man) 0 % 05/02/19 03:50 Monocytes % (Manual) 8.0 % (0.0-7.3) H 05/02/19 03:50 Eosinophils % (Manual) 1.0 % (0.0-4.3) 05/02/19 03:50 Basophils % (Manual) 0 % (0.0-1.8) 05/02/19 03:50 Metamyelocytes % 0 % 05/02/19 03:50 Myelocytes % 0 % 05/02/19 03:50 Promyelocytes % 0 % 05/02/19 03:50 Blast Cells % 0 % 05/02/19 03:50 Nucleated RBC % Not Reportable 05/02/19 03:50 Seg Neutrophils # Man 2.6 K/mm3 (1.8-7.7) 05/02/19 03:50 Band Neutrophils # 0.0 K/mm3 05/02/19 03:50 Lymphocytes # (Manual) 2.7 K/mm3 (1.2-5.4) 05/02/19 03:50 Abs React Lymphs (Man) 0.0 K/mm3 05/02/19 03:50 Monocytes # (Manual) 0.5 K/mm3 (0.0-0.8) 05/02/19 03:50 Eosinophils # (Manual) 0.1 K/mm3 (0.0-0.4) 05/02/19 03:50 Basophils # (Manual) 0.0 K/mm3 (0.0-0.1) 05/02/19 03:50 Metamyelocytes # 0.0 K/mm3 05/02/19 03:50 Myelocytes # 0.0 K/mm3 05/02/19 03:50 Promyelocytes # 0.0 K/mm3 05/02/19 03:50 Blast Cells # 0.0 K/mm3 05/02/19 03:50 WBC Morphology Not Reportable 05/02/19 03:50 Hypersegmented Neuts Not Reportable 05/02/19 03:50 Hyposegmented Neuts Not Reportable 05/02/19 03:50 Hypogranular Neuts Not Reportable 05/02/19 03:50 Smudge Cells Not Reportable 05/02/19 03:50 Toxic Granulation Not Reportable 05/02/19 03:50 Toxic Vacuolation Not Reportable 05/02/19 03:50 Dohle Bodies Not Reportable 05/02/19 03:50 Pelger-Huet Anomaly Not Reportable 05/02/19 03:50 Rachel Rods Not Reportable 05/02/19 03:50 Platelet Estimate Consistent w auto 05/02/19 03:50 Clumped Platelets Not Reportable 05/02/19 03:50 Plt Clumps, EDTA Not Reportable 05/02/19 03:50 Large Platelets Not Reportable 05/02/19 03:50 Giant Platelets Not Reportable 05/02/19 03:50 Platelet Satelliting Not Reportable 05/02/19 03:50 Plt Morphology Comment Not Reportable 05/02/19 03:50 RBC Morphology Not Reportable 05/02/19 03:50 Dimorphic RBCs Not Reportable 05/02/19 03:50 Polychromasia Not Reportable 05/02/19 03:50 Hypochromasia 1+ 05/02/19 03:50 Poikilocytosis Not Reportable 05/02/19 03:50 Anisocytosis 1+ 05/02/19 03:50 Microcytosis 1+ 05/02/19 03:50 Macrocytosis Not Reportable 05/02/19 03:50 Spherocytes Not Reportable 05/02/19 03:50 Pappenheimer Bodies Not Reportable 05/02/19 03:50 Sickle Cells Not Reportable 05/02/19 03:50 Target Cells Not Reportable 05/02/19 03:50 Tear Drop Cells Not Reportable 05/02/19 03:50 Ovalocytes Not Reportable 05/02/19 03:50 Helmet Cells Not Reportable 05/02/19 03:50 [place] Bodies Not Reportable 05/02/19 03:50 [place] Rings Not Reportable 05/02/19 03:50 [place] Cells Not Reportable 05/02/19 03:50 Bite Cells Not Reportable 05/02/19 03:50 Crenated Cell Not Reportable 05/02/19 03:50 Elliptocytes Not Reportable 05/02/19 03:50 Acanthocytes (Spur) Not Reportable 05/02/19 03:50 Rouleaux Not Reportable 05/02/19 03:50 Hemoglobin C Crystals Not Reportable 05/02/19 03:50 Schistocytes Not Reportable 05/02/19 03:50 Malaria parasites Not Reportable 05/02/19 03:50 [place] Bodies Not Reportable 05/02/19 03:50 Hem Pathologist Commnt No 05/02/19 03:50 Sodium 136 mmol/L (137-145) L 05/02/19 03:50 Potassium 3.6 mmol/L (3.6-5.0) 05/02/19 03:50 Chloride 102.6 mmol/L (98-107) 05/02/19 03:50 Carbon Dioxide 21 mmol/L (22-30) L 05/02/19 03:50 Anion Gap 16 mmol/L 05/02/19 03:50 BUN 5 mg/dL (7-17) L 05/02/19 03:50 Creatinine 0.6 mg/dL (0.7-1.2) L 05/02/19 03:50 Estimated GFR > 60 ml/min 05/02/19 03:50 BUN/Creatinine Ratio 8 % 05/02/19 03:50 Glucose 68 mg/dL (65-100) 05/02/19 03:50 Calcium 8.3 mg/dL (8.4-10.2) L 05/02/19 03:50 Total Bilirubin 0.40 mg/dL (0.1-1.2) 05/01/19 00:10 AST 8 units/L (5-40) 05/01/19 00:10 ALT < 5 units/L (7-56) L 05/01/19 00:10 Alkaline Phosphatase 65 units/L (35-129) 05/01/19 00:10 Total Protein 7.9 g/dL (6.3-8.2) 05/01/19 00:10 Albumin 4.1 g/dL (3.9-5) 05/01/19 00:10 Albumin/Globulin Ratio 1.1 % 05/01/19 00:10 Urine Color Yellow (Yellow) 05/01/19 07:24 Urine Turbidity Clear (Clear) 05/01/19 07:24 Urine pH 8.0 (5.0-7.0) H 05/01/19 07:24 Ur Specific [place] 1.012 (1.003-1.030) 05/01/19 07:24 Urine Protein <15 mg/dl mg/dL (Negative) 05/01/19 07:24 Urine Glucose (UA) Neg mg/dL (Negative) 05/01/19 07:24 Urine Ketones Tr mg/dL (Negative) 05/01/19 07:24 Urine Blood Neg (Negative) 05/01/19 07:24 Urine Nitrite Neg (Negative) 05/01/19 07:24 Urine Bilirubin Neg (Negative) 05/01/19 07:24 Urine Urobilinogen < 2.0 mg/dL (<2.0) 05/01/19 07:24 Ur Leukocyte Esterase Neg (Negative) 05/01/19 07:24 Urine WBC (Auto) < 1.0 /HPF (0.0-6.0) 05/01/19 07:24 Urine RBC (Auto) 1.0 /HPF (0.0-6.0) 05/01/19 07:24 U Epithel Cells (Auto) < 1.0 /HPF (0-13.0) 05/01/19 07:24 Urine Mucus Few /HPF 05/01/19 07:24 Urine HCG, Qual Negative (Negative) 05/01/19 07:24 Lakhani/IV: Voiding Method Toilet IV Catheter Type [Left INT / Saline Lock Antecubital] Active Medications - Current Medications Current Medications: Generic Name Dose Route Start Last Admin Trade Name Freq PRN Reason Stop Dose Admin Acetaminophen 650 mg 05/01/19 12:50 Tylenol PO Q4H PRN Pain MILD(1-3)/Fever >100.5/GOMEZ Acetaminophen/Hydrocodone Bitart 1 each 05/02/19 00:01 05/02/19 20:05 [place] 7.5/325 PO 1 each Q6HR PRN Administration Pain, Moderate (4-6) Albuterol 2.5 mg 05/01/19 12:50 Proventil IH Q4HRT PRN Shortness Of Breath Miscellaneous Medication 150 mg 05/02/19 00:01 Methylnaltrexone [place] [Relistor] PO TID PRN Constipation Ondansetron HCl 4 mg 05/01/19 12:50 Zofran IV Q8H PRN Nausea And Vomiting Pregabalin 75 mg 05/02/19 10:00 05/02/19 10:06 Pregabalin PO 75 mg BID NADIA Administration Sodium Chloride 10 ml 05/01/19 22:00 05/02/19 10:07 Sodium Chloride Flush Syringe 10 Ml IV 10 ml BID NADIA Administration Sodium Chloride 10 ml 05/01/19 12:50 Sodium Chloride Flush Syringe 10 Ml IV PRN PRN LINE FLUSH Tizanidine HCl 4 mg 05/02/19 10:00 05/02/19 10:06 Zanaflex PO 4 mg BID NADIA Administration Zolpidem Tartrate 5 mg 05/02/19 00:01 05/02/19 00:33 Ambien PO 5 mg QHS PRN Administration Sleep
[2019-05-02] MEDS ORDERED: diphenhydrAMINE 25 MG CAP PO PRN (23:21)
[2019-05-03 04:16] VITALS: BP 113/56
[2019-05-03] MEDS: HYDROcodone/ACETAMINOPHEN 7.5-325MG TAB PO PRN (05:56)
[2019-05-03 06:50] LABS: Hematocrit 27.1 % (30.3-42.9); Hemoglobin 8.4 gm/dl (10.1-14.3); Mean Corpuscular HGB Conc 31 % (30-34); Platelet Count 238 K/mm3 (140-440); Red Blood Count 4.54 M/mm3 (3.65-5.03)
[2019-05-03 07:09] LABS: Mean Corpuscular Volume 60 fl (79-97); Red Cell Distribution Width 20.3 % (13.2-15.2)
--- NOTE | 2019-05-03 07:53 | Discharge Summary ---
Providers - Providers Date of Admission: 05/01/19 11:41 Attending physician: TEMO XIE MD 05/01/19 10:02 Consult to Physician [CONS] Stat Comment: BILLY Velasquez/DR VARELA @1021 Consulting Provider: ADAMARIS VARELA Physician Instructions: Reason For Exam: Colitis 05/01/19 11:30 Consult to Physician [CONS] Stat Comment: BILLY Velasquez/DR DENIS @1054 Consulting Provider: JANEL DENIS Physician Instructions: Reason For Exam: gi bleed Primary care physician: [employer]PER Hospitalization Reason for admission: Epigastric pain Condition: Stable Hospital course: 48 YO Female with HTN, OA, Lymphedema, COPD, Obesity Hypoventilation Syndrome, Neuropathy presents to ED for evaluation. Patient states that she has experienced abdominal pain over the past 1 day with persistent symptoms during the same timeframe. Patient acknowledges onset of symptoms around 1900 hrs. on the day prior to admission. Patient states symptoms began after eating a hot dog. Patient knowledges nausea, multiple episodes of vomiting, abdominal pain, abdominal cramping. Patient reports that pain in her abdomen is 8/10, constant, without exacerbating or alleviating factors. EMS notified and upon arrival the patient was found to be in distress and subsequently transported to [facility] for further evaluation and care. Patient seen in ED and evaluated in the emergency department. Lab and imaging studies reviewed. CT scan of the abdomen and pelvis was conducted. Patient found to have clinical symptoms consistent with gastroenteritis. Patient placed in observation status and admitted to medical floor. Patient denies fever, chills, chest pain, short of breath, palpitations, hemoptysis, blood in stool, chills, headache, productive cough, stiff neck, numbness or tingling. Surgery consult placed in the emergency department. GI consult placed in the emergency department. No prior admission for review. All medication listed at time of admission has been reconciled. CTAP- Concerning for appendicitis * Patient was seen by surgeon following evaluation decided that this is an acute appendicitis more of an epigastric pain which is likely due to gastroenteritis per GI related to the hotdog intake. Patient was started on PPI and cleared for discharge. * Outpatient follow-up with GI for age-appropriate screening considering microcytic anemia was recommended. * Patient clinically stable at this time for discharge * Weight loss recommendation was also given to the patient. - Patient Problems (1) Gastroenteritis (2) Obesity hypoventilation syndrome (3) HTN (hypertension) (4) Arthritis (5) Microcytic Anemia (6) morbid obesity (7) COPD stable Disposition: DC-01 TO HOME OR SELFCARE Time spent for discharge: 35 minutes Core Measure Documentation - Palliative Care Palliative Care/ Comfort Measures: Not Applicable - Core Measures Any of the following diagnoses?: none Exam - Physical Exam Narrative exam: VITAL SIGNS: Reviewed. GENERAL: The patient appears normally developed,obese Vital signs as documented. HEAD: No signs of head trauma. EYES: Pupils are equal. Extraocular motions intact. EARS: Hearing grossly intact. MOUTH: Oropharynx is normal. NECK: No adenopathy, no JVD. CHEST: Chest with clear breath sounds bilaterally. No wheezes, rales, or rhonchi. CARDIAC: Regular rate and rhythm. S1 and S2, without murmurs, gallops, or rubs. VASCULAR: No Edema. Peripheral pulses normal and equal in all extremities. ABDOMEN: Soft, non tender and non distended. No rebound or guarding, and no masses palpated. Bowel Sounds normal. MUSCULOSKELETAL: Good range of motion of all major joints. Extremities without clubbing, cyanosis or edema. NEUROLOGIC EXAM: Alert and oriented x 3 No focal sensory or strength deficits. Speech normal. Follows commands. PSYCHIATRIC: Mood normal. SKIN: detial exam as documented in skin assessment - Constitutional Vitals: Temp Pulse Resp BP Pulse Ox 97.7 F 70 18 113/56 100 05/03/19 04:05 05/03/19 04:05 05/03/19 04:05 05/03/19 04:05 05/03/19 04:05 Plan Activity: advance as tolerated, fall precautions Diet: low fat Special Instructions: record daily BP diary, record blood sugar diary, smoking cessation Follow up with: PRIMARY CAREMD [Primary Care Provider] - 3-5 Days JANEL DENIS MD [Staff Physician] - 7 Days Prescriptions: Pantoprazole [Protonix TAB] 40 mg PO QDAY #30 tablet
[2019-05-03] MEDS: tiZANidine TAB 4 MG TAB PO SCH (09:51)
[2019-05-03] MEDS: PREGABALIN 75 MG CAP PO SCH (09:51)
[2019-05-03 10:28] LABS: Anisocytosis 1+; Eosinophils % (Manual) 0 % (0.0-4.3); Hypochromasia 2+; Platelet Estimate Consistent w Auto; Target Cells Few; Total Cells Counted 100
--- NOTE | 2019-05-03 11:18 | Progress Note ---
Assessment and Plan Pt feeling well without compl. emeterio cl liq diet. denies pain Abd soft, non tender h/h's stable. GI eval noted. GB US - + cholelithiasis without any evidence of cholecystitis surgically stable may d/c from surg perspective instructed to eat low fat diet f/u in office in 2 wks Selected Entries 05/02/19 05/02/19 05/02/19 04:01 09:22 10:00 Temperature 97.9 F Pulse Rate 65 Respiratory Rate Respiratory 20 Rate [Lower Back] Blood Pressure 05/03/19 05/03/19 04:05 09:00 Temperature 97.7 F Pulse Rate 70 Respiratory 20 Rate Respiratory Rate [Lower Back] Blood Pressure 113/56 Laboratory Tests 05/01/19 05/02/19 05/03/19 00:10 03:50 05:56 WBC 6.3 5.8 Hgb 8.9 L 8.1 L 8.4 L Hct 29.3 L 26.0 L 27.1 L Objective Vital Signs - 12hr 05/02/19 05/03/19 05/03/19 23:23 04:05 07:00 Temperature 98.1 F 97.7 F Pulse Rate 61 70 Respiratory 18 18 20 Rate Respiratory Rate [Left Lower Abdomen] Respiratory Rate [Lower Back] Respiratory Rate [Right Leg ] Blood Pressure 103/47 113/56 O2 Sat by Pulse 93 100 Oximetry 05/03/19 05/03/19 09:00 10:00 Temperature Pulse Rate Respiratory 20 Rate Respiratory 20 Rate [Left Lower Abdomen] Respiratory 20 Rate [Lower Back] Respiratory 20 Rate [Right Leg ] Blood Pressure O2 Sat by Pulse Oximetry - Labs 05/03/19 05:56 05/02/19 03:50
== END 2019-05-03 13:25 | disposition home or self-care (01) ==
LOC: ED 23:35 → 3A 05-01 11:41 → 4A 05-01 17:18
PROVIDERS: ADMIT Internal Medicine; ATTEND Internal Medicine
DX: N18.6 End stage renal disease (principal); E87.2 Acidosis; E87.5 Hyperkalemia; K52.9 Noninfective gastroenteritis and colitis, unspecified; E66.2 Morbid (severe) obesity with alveolar hypoventilation; I10 Essential (primary) hypertension; M19.90 Unspecified osteoarthritis, unspecified site; J44.9 Chronic obstructive pulmonary disease, unspecified; D64.9 Anemia, unspecified; R11.2 Nausea with vomiting, unspecified
CPT/HCPCS: 36415; 74177; 76705; 80048; 80053; 81001; 81025; 82271; 85007; 85025; 96361; 96365; 96367; 96375; 99284; G0378; J1956; J2270; J2405; J7030; Q9967; J2543

== ENCOUNTER 2021-07-07 11:46 | Outpatient (CLI) | payer OTHER | END 2021-07-07 11:47 | disposition home or self-care (01) | LOC: PF 11:46 | PROVIDERS: ATTEND Internal Medicine | DX: J44.9 Chronic obstructive pulmonary disease, unspecified (principal) | CPT/HCPCS: 94010 ==